=== PATIENT | male | born 1965 | race Caucasian/White ===

== ENCOUNTER 2017-12-10 23:45 | Observation (INO) | payer OTHER ==
[~2017-12-10] VITALS: Ht 154.9 cm; Wt 99.8 kg
[~2017-12-10 23:45] MED LIST: ALBU90I INH; BISA10S PR; BUME1 PO; CYCL10 PO; DIAZ5 PO; DOCU100 PO; ERYT250; HYDACE5; HYDACE5 PO; HYDR1TAB94 PO; IBUP400 PO; LEVO750 PO; LISI5 PO; LORA2 PO; NAPR220 PO; NAPR550 PO; OMEP20ER PO; OXYACE5T PO; PENVK500; PROM25 PO; RXCYCL10 PO; RXLORA1 PO; RXNAPNA550 PO; SULTRIDS PO
[2017-12-11 00:28] LABS: BASOPHILS ABSOLUTE AUTO 0.04 K/mm3 (0.00-0.23); BASOPHILS PERCENT AUTO 1 % (0-2); EOSINOPHILS ABSOLUTE AUTO 0.02 K/mm3 (0.00-0.68); EOSINOPHILS PERCENT AUTO 0 % (0-6); Hematocrit 45.8 % (37.0-53.0); Hemoglobin 15.8 g/dL (13.5-17.5); IMMATURE GRAN ABSOLUTE AUTO 0.03 K/mm3 (0.00-0.10); IMMATURE GRAN PERCENT AUTO 0 % (0-1); LYMPHOCYTES ABSOLUTE AUTO 1.08 K/mm3 (0.84-5.20); LYMPHOCYTES PERCENT AUTO 13 % (21-46); MONOCYTES ABSOLUTE AUTO 0.76 K/mm3 (0.16-1.47); MONOCYTES PERCENT AUTO 9 % (4-13); Mean Corpuscular HGB Conc 34.5 g/dL (31.5-36.5); Mean Corpuscular Volume 90 fL (80-100); Mean Platelet Volume 9.3 fL (9.1-12.4); NEUTROPHILS ABSOLUTE AUTO 6.73 K/mm3 (1.96-9.15); NEUTROPHILS PERCENT AUTO 78 % (41-73); Platelet Count 266 K/mm3 (150-400); RDW Coefficient Variation 13.4 % (11.7-14.2); RDW Standard Deviation 44.2 fL (35.1-46.3); White Blood Cell Count 8.66 K/mm3 (4.00-11.30)
[2017-12-11 00:51] LABS: Alanine Aminotransfer (ALT/SGP 74 U/L (12-78); Albumin, Blood 3.4 g/dL (3.4-5.0); Albumin/Globulin Ratio 0.8 (0.8-1.8); Alk Phos 92 U/L (50-136); Anion Gap 10 mmol/L (6-16); Aspartate Aminotrans (AST/SGOT 60 U/L (12-37); Bilirubin, Total 1.1 mg/dL (0.1-1.0); Blood Urea Nitrogen 14 mg/dL (8-24); Bun/Creatinine Ratio 15.6 (12.0-20.0); CO2, Blood 26 mmol/L (21-32); Calcium, Blood 8.2 mg/dL (8.5-10.1); Chloride, Blood 100 mmol/L (98-108); Ethanol (Alcohol), Blood, Med <3 mg/dL; Globulin, Blood 4.5 g/dL (2.2-4.0); Glomerular Filtration Rate >60 (60-); Glucose, Blood 95 mg/dL (70-99); Potassium, Blood 3.8 mmol/L (3.5-5.5); Sodium, Blood 136 mmol/L (136-145); Total Protein, Blood 7.9 g/dL (6.4-8.2)
[2017-12-11 05:01] LABS: BASOPHILS ABSOLUTE AUTO 0.03 K/mm3 (0.00-0.23); BASOPHILS PERCENT AUTO 0 % (0-2); EOSINOPHILS ABSOLUTE AUTO 0.04 K/mm3 (0.00-0.68); EOSINOPHILS PERCENT AUTO 1 % (0-6); Hematocrit 42.6 % (37.0-53.0); Hemoglobin 14.4 g/dL (13.5-17.5); IMMATURE GRAN ABSOLUTE AUTO 0.02 K/mm3 (0.00-0.10); IMMATURE GRAN PERCENT AUTO 0 % (0-1); LYMPHOCYTES ABSOLUTE AUTO 1.06 K/mm3 (0.84-5.20); LYMPHOCYTES PERCENT AUTO 15 % (21-46); MONOCYTES PERCENT AUTO 8 % (4-13); Mean Corpuscular HGB 30.8 pg (26.0-34.0); Mean Corpuscular HGB Conc 33.8 g/dL (31.5-36.5); Mean Corpuscular Volume 91 fL (80-100); Mean Platelet Volume 9.2 fL (9.1-12.4); NEUTROPHILS ABSOLUTE AUTO 5.38 K/mm3 (1.96-9.15); NEUTROPHILS PERCENT AUTO 75 % (41-73); Platelet Count 218 K/mm3 (150-400); RDW Coefficient Variation 13.5 % (11.7-14.2); RDW Standard Deviation 45.2 fL (35.1-46.3); Red Blood Cell Count 4.67 M/mm3 (4.30-5.90); White Blood Cell Count 7.13 K/mm3 (4.00-11.30)
[2017-12-11 05:38] LABS: Alanine Aminotransfer (ALT/SGP 62 U/L (12-78); Albumin/Globulin Ratio 0.7 (0.8-1.8); Alk Phos 80 U/L (50-136); Anion Gap 9 mmol/L (6-16); Aspartate Aminotrans (AST/SGOT 49 U/L (12-37); Bilirubin, Total 1.1 mg/dL (0.1-1.0); Blood Urea Nitrogen 13 mg/dL (8-24); Bun/Creatinine Ratio 14.6 (12.0-20.0); CHOL/HDL RATIO 2.1; CO2, Blood 26 mmol/L (21-32); Calcium, Blood 7.7 mg/dL (8.5-10.1); Chloride, Blood 102 mmol/L (98-108); Cholesterol 174 mg/dL (50-200); Creatinine, Blood 0.89 mg/dL (0.60-1.20); Globulin, Blood 4.1 g/dL (2.2-4.0); Glomerular Filtration Rate >60 (60-); Glucose, Blood 83 mg/dL (70-99); HDL Cholesterol 84 mg/dL (>39); LDL/HDL RATIO 0.7; Low Density Lipoprotein Chol 60 mg/dL (0-110); Potassium, Blood 3.5 mmol/L (3.5-5.5); Sodium, Blood 137 mmol/L (136-145); Total Protein, Blood 7.1 g/dL (6.4-8.2); Triglycerides 148 mg/dL (30-160); Very Low Density Lipoprot Chol 29 mg/dL (6-32)
== END 2017-12-12 15:09 | disposition home or self-care (01) ==
LOC: ER 23:45 → MEDS 23:46 → ER 12-11 01:45 → MEDS 12-11 01:45 → ENPENDDIS 12-12 08:16 → MEDS 12-12 15:09
PROVIDERS: Emergency Medicine; Internal Medicine
DX: K85.90 Acute pancreatitis without necrosis or infection, unspecified (principal); E86.0 Dehydration; Z98.890 Other specified postprocedural states
CPT/HCPCS: 36415; 76705; 80053; 80061; 83690; 85025; 96361; 96374; 96375; 99285; G0378; G0480; J1170; J1650; J2405; J7030

== ENCOUNTER → 2018-03-26 | Outpatient (CLI) | payer OTHER | LOC: LAB SHORT 16:40 → LAB 16:40 | DX: L08.9 Local infection of the skin and subcutaneous tissue, unspecified (principal) | CPT/HCPCS: 87070; 87077; 87147; 87186; 87205 ==

== ENCOUNTER 2018-10-22 12:17 | Emergency (ER) | payer BC ==
[~2018-10-22] VITALS: Ht 180.3 cm; Wt 99.8 kg
[2018-10-22 13:20] LABS: BASOPHILS ABSOLUTE AUTO 0.06 K/mm3 (0.00-0.23); BASOPHILS PERCENT AUTO 1 % (0-2); EOSINOPHILS PERCENT AUTO 0 % (0-6); Hematocrit 48.8 % (37.0-53.0); Hemoglobin 16.2 g/dL (13.5-17.5); IMMATURE GRAN ABSOLUTE AUTO 0.03 K/mm3 (0.00-0.10); IMMATURE GRAN PERCENT AUTO 0 % (0-1); LYMPHOCYTES PERCENT AUTO 8 % (21-46); MONOCYTES ABSOLUTE AUTO 0.49 K/mm3 (0.16-1.47); MONOCYTES PERCENT AUTO 6 % (4-13); Mean Corpuscular HGB 30.3 pg (26.0-34.0); Mean Corpuscular HGB Conc 33.2 g/dL (31.5-36.5); Mean Corpuscular Volume 91 fL (80-100); Mean Platelet Volume 9.8 fL (9.1-12.4); NEUTROPHILS ABSOLUTE AUTO 7.08 K/mm3 (1.96-9.15); NEUTROPHILS PERCENT AUTO 85 % (41-73); Platelet Count 242 K/mm3 (150-400); RDW Coefficient Variation 12.9 % (11.7-14.2); RDW Standard Deviation 43.5 fL (35.1-46.3); Red Blood Cell Count 5.34 M/mm3 (4.30-5.90); White Blood Cell Count 8.36 K/mm3 (4.00-11.30)
[2018-10-22 14:30] LABS: Alanine Aminotransfer (ALT/SGP 104 U/L (12-78); Albumin, Blood 3.6 g/dL (3.4-5.0); Albumin/Globulin Ratio 0.9 (0.8-1.8); Alk Phos 131 U/L (50-136); Anion Gap 13 mmol/L (6-16); Aspartate Aminotrans (AST/SGOT 168 U/L (12-37); Bilirubin, Total 2.3 mg/dL (0.1-1.0); Blood Urea Nitrogen 11 mg/dL (8-24); CO2, Blood 25 mmol/L (21-32); Calcium, Blood 8.6 mg/dL (8.5-10.1); Chloride, Blood 98 mmol/L (98-108); Globulin, Blood 4.2 g/dL (2.2-4.0); Glomerular Filtration Rate >60 (60-); Glucose, Blood 147 mg/dL (70-99); Potassium, Blood 4.1 mmol/L (3.5-5.5); Sodium, Blood 136 mmol/L (136-145); Total Protein, Blood 7.8 g/dL (6.4-8.2)
[2018-10-22 15:27] LABS: Source, Urine Clean Catch
[2018-10-22 15:30] LABS: Appearance, Urine Clear (Clear); Blood, Urine 1+ (Neg); Color, Urine Amber (P-Yellow); Glucose Qualitative, Urine Neg (Neg); Ketones, Urine 4+ (Neg); Leukocyte Esterase, Urine 1+ (Neg); Nitrite, Urine Pos (Neg); Protein, Urine 2+ (Neg); Specific Gravity, Urine 1.025 (1.003-1.022); Urobilinogen, Urine 2+ (Normal)
[2018-10-22 15:43] LABS: Bilirubin, Urine 1+ (Neg)
[2018-10-22 15:48] LABS: Mucus Mod (0-Heavy)
[2018-10-22 15:49] LABS: Bacteria Mod /hpf; Squamous Epithelial Cells Not Seen /hpf (Few)
[2018-10-22] MEDS ORDERED: ONDA4ODT MM (18:16)
[2018-10-22] MEDS ORDERED: CHLO25 PO (18:16)
== END 2018-10-22 18:27 | disposition home or self-care (01) ==
LOC: ER 12:17
PROVIDERS: Physician Assistant
DX: R10.13 Epigastric pain (principal); R10.11 Right upper quadrant pain; R11.2 Nausea with vomiting, unspecified
CPT/HCPCS: 36415; 74177; 80053; 81001; 83690; 84484; 85025; 87086; 96361; 96365; 96375; 96376; 99284-25; J1170; J2060; J2405; J3411; J7120; Q9967

== ENCOUNTER 2019-08-19 09:55 | Emergency (ER) | payer BC ==
[~2019-08-19] VITALS: Ht 180.3 cm; Wt 90.7 kg
[~2019-08-19 09:55] MED LIST changes: +CHLO25 PO; +ONDA4ODT MM
[2019-08-19 11:21] LABS: BASOPHILS ABSOLUTE AUTO 0.04 K/mm3 (0.00-0.23); BASOPHILS PERCENT AUTO 1 % (0-2); EOSINOPHILS ABSOLUTE AUTO 0.01 K/mm3 (0.00-0.68); EOSINOPHILS PERCENT AUTO 0 % (0-6); Hematocrit 43.4 % (37.0-53.0); Hemoglobin 14.6 g/dL (13.5-17.5); IMMATURE GRAN ABSOLUTE AUTO 0.01 K/mm3 (0.00-0.10); IMMATURE GRAN PERCENT AUTO 0 % (0-1); LYMPHOCYTES ABSOLUTE AUTO 0.62 K/mm3 (0.84-5.20); LYMPHOCYTES PERCENT AUTO 16 % (21-46); MONOCYTES ABSOLUTE AUTO 0.35 K/mm3 (0.16-1.47); MONOCYTES PERCENT AUTO 9 % (4-13); Mean Corpuscular HGB Conc 33.6 g/dL (31.5-36.5); Mean Corpuscular Volume 92 fL (80-100); Mean Platelet Volume 9.8 fL (9.1-12.4); NEUTROPHILS PERCENT AUTO 74 % (41-73); Platelet Count 167 K/mm3 (150-400); RDW Coefficient Variation 13.6 % (11.7-14.2); RDW Standard Deviation 46.3 fL (35.1-46.3); Red Blood Cell Count 4.71 M/mm3 (4.30-5.90); White Blood Cell Count 3.93 K/mm3 (4.00-11.30)
[2019-08-19 11:36] LABS: Source, Urine Clean Catch
[2019-08-19 11:37] LABS: International Normalized Ratio 1.08; Prothrombin Time Results 11.4 Sec (9.7-11.5)
[2019-08-19 11:40] LABS: Alanine Aminotransfer (ALT/SGP 53 U/L (12-78); Albumin, Blood 3.7 g/dL (3.4-5.0); Albumin/Globulin Ratio 0.8 (0.8-1.8); Alk Phos 150 U/L (50-136); Anion Gap 12 mmol/L (6-16); Aspartate Aminotrans (AST/SGOT 75 U/L (12-37); Bilirubin, Total 0.8 mg/dL (0.1-1.0); Blood Urea Nitrogen 13 mg/dL (8-24); Bun/Creatinine Ratio 12.7 (12.0-20.0); CO2, Blood 23 mmol/L (21-32); Chloride, Blood 104 mmol/L (98-108); Creatinine, Blood 1.02 mg/dL (0.60-1.20); Globulin, Blood 4.7 g/dL (2.2-4.0); Glomerular Filtration Rate >60 (60-); Glucose, Blood 86 mg/dL (70-99); Potassium, Blood 3.8 mmol/L (3.5-5.5); Sodium, Blood 139 mmol/L (136-145); Total Protein, Blood 8.4 g/dL (6.4-8.2)
[2019-08-19 11:49] LABS: Appearance, Urine Clear (Clear); Bilirubin, Urine Neg (Neg); Blood, Urine Neg (Neg); Color, Urine Yellow (P-Yellow); Glucose Qualitative, Urine Neg (Neg); Ketones, Urine Neg (Neg); Leukocyte Esterase, Urine Neg (Neg); Nitrite, Urine Neg (Neg); Protein, Urine 1+ (Neg); Urobilinogen, Urine NORM (Normal); pH, Urine 6.5 (5.0-8.0)
[2019-08-19] MEDS ORDERED: Zofran8 MG PO (12:23)
[2019-08-19] MEDS ORDERED: Pepcid20 MG PO (12:23)
[2019-08-19] MEDS ORDERED: HYDACE25S PR (12:36)
== END 2019-08-19 12:44 | disposition home or self-care (01) ==
LOC: ER 09:55
PROVIDERS: Emergency Medicine
DX: K62.5 Hemorrhage of anus and rectum (principal); R11.0 Nausea
CPT/HCPCS: 36415; 80053; 85025; 85610; 85730; 86850; 86900; 86901; 93005; 93010; 96374; 96375; 99283-25; J2405

== ENCOUNTER 2019-11-05 08:25 | Day surgery (SDC) | payer BC, OTHER ==
[~2019-11-05] VITALS: Ht 180.3 cm; Wt 94.8 kg
[~2019-11-05 08:25] MED LIST changes: +CHLO5; +HYDACE25S PR; +Pepcid20 MG PO; +Zofran8 MG PO
== END 2019-11-05 12:07 | disposition home or self-care (01) ==
LOC: ORSCSDS 08:25
DX: K92.1 Melena (principal); D12.0 Benign neoplasm of cecum; D12.2 Benign neoplasm of ascending colon; K64.8 Other hemorrhoids; R19.4 Change in bowel habit; K76.0 Fatty (change of) liver, not elsewhere classified; I10 Essential (primary) hypertension; Z79.899 Other long term (current) drug therapy
CPT/HCPCS: 88305; J2704; J7040; J7120

== ENCOUNTER 2019-12-28 10:23 | Day surgery (SDC) | payer BC ==
[~2019-12-28] VITALS: Ht 180.3 cm; Wt 98.8 kg
--- NOTE | 2019-12-28 11:54 | NUR ---
12/28/19 Karla4 Sanjuana Manjarrez SIMETHICONE USED DURING PROCEDURE.
== END 2019-12-28 13:16 | disposition home or self-care (01) ==
LOC: ORSCSDS 10:23
PROVIDERS: Student in an Organized Health Care Education/Training Program
PROC: 0DBH8ZX Excision of Cecum, Via Natural or Artificial Opening Endoscopic, Diagnostic (ICD-10-PCS; principal; 2019-12-28 12:00)
PROC: 0DBK8ZX Excision of Ascending Colon, Via Natural or Artificial Opening Endoscopic, Diagnostic (ICD-10-PCS; principal; 2019-12-28 12:00)
PROC: 0DBN8ZX Excision of Sigmoid Colon, Via Natural or Artificial Opening Endoscopic, Diagnostic (ICD-10-PCS; principal; 2019-12-28 12:00)
PROC: 0DBP8ZX Excision of Rectum, Via Natural or Artificial Opening Endoscopic, Diagnostic (ICD-10-PCS; principal; 2019-12-28 12:00)
DX: Z12.11 Encounter for screening for malignant neoplasm of colon (principal); Z86.010 Personal history of colon polyps; D12.0 Benign neoplasm of cecum; D12.5 Benign neoplasm of sigmoid colon; D12.2 Benign neoplasm of ascending colon; D12.8 Benign neoplasm of rectum; K57.30 Diverticulosis of large intestine without perforation or abscess without bleeding; K64.8 Other hemorrhoids
CPT/HCPCS: 88305; J2250; J2704; J7120

== ENCOUNTER → 2020-11-01 | Outpatient (CLI) | payer OTHER ==
[~2020-11-01] MED LIST changes: +AMOX500 PO
[2020-11-11 07:10] LABS: COTININE <10.0 ng/mL (.); NICOTINE <10.0 ng/mL (.)
== END | disposition home or self-care (01) ==
LOC: LAB SHORT 10:03 → OLS 10:03 → EDSTATUS 10-31 14:55 → LAB FUT 10-31 14:55
PROVIDERS: Ophthalmology
DX: F17.211 Nicotine dependence, cigarettes, in remission (principal)
CPT/HCPCS: G0480

== ENCOUNTER 2021-01-03 06:11 | Day surgery (SDC) | payer OTHER ==
[~2021-01-03] VITALS: Ht 180.3 cm; Wt 101.1 kg
[~2021-01-03 06:11] MED LIST changes: -AMOX500 PO
--- NOTE | 2021-01-03 06:44 | NUR ---
01/03/21 0644 Edwige Reyes V 1 DROP TETRACAINE APPLIED AT 0640 AND 1 PLEDGET PLACED AT 0642 IN L EYE PER ORDERS.
[2021-02-13] MEDS ORDERED: AMOX500 PO
== END 2021-01-03 08:10 | disposition home or self-care (01) ==
LOC: ORSCSDS 06:11
PROVIDERS: Ophthalmology
PROC: 08RK3JZ Replacement of Left Lens with Synthetic Substitute, Percutaneous Approach (ICD-10-PCS; principal; 2021-01-03 07:30)
DX: H25.12 Age-related nuclear cataract, left eye (principal)
CPT/HCPCS: A9270; J2001; J2250; J3010; J3301; J7040; V2632

== ENCOUNTER 2022-08-08 11:31 | Emergency (ER) | payer OTHER ==
[~2022-08-08] VITALS: Ht 180.3 cm; Wt 99.8 kg
[~2022-08-08 11:31] MED LIST changes: +AMOX500 PO
== END 2022-08-08 15:00 | disposition home or self-care (01) ==
LOC: ER 11:31
DX: S63.104A Unspecified dislocation of right thumb, initial encounter (principal); X58.XXXA Exposure to other specified factors, initial encounter
CPT/HCPCS: 73140

== ENCOUNTER → 2024-05-28 | Outpatient (CLI) | payer OTHER | LOC: LAB 07:41 → LAB SHORT 07:41 | DX: R22.41 Localized swelling, mass and lump, right lower limb (principal) | CPT/HCPCS: 88305 ==

== ENCOUNTER 2024-07-07 15:31 | Inpatient (IN) | payer OTHER ==
[~2024-07-07] VITALS: Ht 180.3 cm; Wt 97.4 kg
[2024-07-07 16:11] LABS: Source, Urine Clean Catch
[2024-07-07 16:14] LABS: BASOPHILS ABSOLUTE AUTO 0.09 K/mm3 (0.00-0.23); BASOPHILS PERCENT AUTO 1 % (0-2); EOSINOPHILS ABSOLUTE AUTO 0.17 K/mm3 (0.00-0.68); EOSINOPHILS PERCENT AUTO 2 % (0-6); Hematocrit 39.9 % (37.0-53.0); Hemoglobin 14.1 g/dL (13.5-17.5); IMMATURE GRAN ABSOLUTE AUTO 0.04 K/mm3 (0.00-0.10); IMMATURE GRAN PERCENT AUTO 1 % (0-1); LYMPHOCYTES ABSOLUTE AUTO 1.48 K/mm3 (0.84-5.20); LYMPHOCYTES PERCENT AUTO 20 % (21-46); MONOCYTES ABSOLUTE AUTO 0.72 K/mm3 (0.16-1.47); MONOCYTES PERCENT AUTO 10 % (4-13); Mean Corpuscular HGB 31.1 pg (26.0-34.0); Mean Corpuscular HGB Conc 35.3 g/dL (31.5-36.5); Mean Corpuscular Volume 88 fL (80-100); Mean Platelet Volume 10.6 fL (9.1-12.4); NEUTROPHILS ABSOLUTE AUTO 4.94 K/mm3 (1.96-9.15); NEUTROPHILS PERCENT AUTO 66 % (41-73); Platelet Count 249 K/mm3 (150-400); RDW Coefficient Variation 17.2 % (11.7-14.2); RDW Standard Deviation 55.4 fL (35.1-46.3); Red Blood Cell Count 4.53 M/mm3 (4.30-5.90); White Blood Cell Count 7.44 K/mm3 (4.00-11.30)
[2024-07-07 16:16] LABS: Appearance, Urine Clear (Clear); Blood, Urine Neg (Neg); Color, Urine Amber (P-Yellow); Glucose Qualitative, Urine Neg (Neg); Ketones, Urine Neg (Neg); Leukocyte Esterase, Urine Neg (Neg); Nitrite, Urine Neg (Neg); Protein, Urine Neg (Neg); Specific Gravity, Urine 1.005 (1.003-1.022); Urobilinogen, Urine 1+ (Normal)
[2024-07-07 16:23] LABS: Bilirubin, Urine 2+ (Neg)
[2024-07-07 16:40] LABS: Albumin, Blood 2.9 g/dL (3.4-5.0); Albumin/Globulin Ratio 0.7 (0.8-1.8); Bilirubin, Direct 12.1 mg/dL (0.0-0.3); Bilirubin, Indirect 1.9 mg/dL (0.1-0.7); Bun/Creatinine Ratio 9.3 (12.0-20.0); Calcium, Blood 8.9 mg/dL (8.5-10.1); Creatinine, Blood 0.75 mg/dL (0.60-1.20); Globulin, Blood 4.2 g/dL (2.2-4.0); Potassium, Blood 3.7 mmol/L (3.5-5.5); Total Protein, Blood 7.1 g/dL (6.4-8.2)
[2024-07-07] MEDS ORDERED: NS 1,000 ML IV SCH ×2 (17:40→21:00)
[2024-07-07 17:56] LABS: International Normalized Ratio 1.01; Prothrombin Time Results 10.8 Sec (9.7-11.5)
[2024-07-07] MEDS ORDERED: Ondansetron HCl 2 MG / ML 2ML Vial IV PRN (20:20)
[2024-07-07] MEDS ORDERED: DONEPEZIL HCL10 M1 PO (21:43)
[2024-07-07 21:51] VITALS: BP 151/95
[2024-07-07] MEDS ORDERED: METOPROLOL SUCC25 MG PO (21:55)
[2024-07-07] MEDS ORDERED: ONE DAILY ESS400 MCG PO (21:56)
[2024-07-07] MEDS ORDERED: ZOLP5 PO (21:57)
--- NOTE | 2024-07-07 21:57 | NUR ---
ADMIT NOTE PT ARRIVED TO FLOOR VIA MAGALY. PT ORIENTED TO UNIT. HANDOFF RECEIVED FROM FANCY WIRE DRAWER ERIBERTO. 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 WE HAVE PROTECTED HIS IV AND HE IS SHOWERING AT THIS TIME. I WILL COMPLETE THE ADMIT AND BEGIN HIS IV FLUIDS WHEN HE IS DONE.
[2024-07-07] MEDS ORDERED: Meclizine HCl 25 MG Tab PO PRN (22:55)
[2024-07-08 03:13] VITALS: BP 104/70
--- NOTE | 2024-07-08 04:24 | NUR ---
SHIFT SUMMARY ADMITTED FOR JAUNDICE. FULL CODE. NS INFUSING ORDERED. MONITORING LABS. ON RA, REGULAR DIET, INDEPENDENT IN ROOM. HE IS A&O X4. HX OF ETOH, HE REPORTS HE HAS CUT WAY DOWN ON HIS CONSUMPTION. HX: OF TBI, PANCREATITIS
[2024-07-08 06:03] LABS: BASOPHILS ABSOLUTE AUTO 0.08 K/mm3 (0.00-0.23); BASOPHILS PERCENT AUTO 1 % (0-2); EOSINOPHILS ABSOLUTE AUTO 0.21 K/mm3 (0.00-0.68); EOSINOPHILS PERCENT AUTO 3 % (0-6); Hematocrit 35.1 % (37.0-53.0); Hemoglobin 12.6 g/dL (13.5-17.5); IMMATURE GRAN ABSOLUTE AUTO 0.03 K/mm3 (0.00-0.10); IMMATURE GRAN PERCENT AUTO 0 % (0-1); LYMPHOCYTES ABSOLUTE AUTO 1.46 K/mm3 (0.84-5.20); LYMPHOCYTES PERCENT AUTO 20 % (21-46); MONOCYTES ABSOLUTE AUTO 0.78 K/mm3 (0.16-1.47); MONOCYTES PERCENT AUTO 11 % (4-13); Mean Corpuscular HGB 31.2 pg (26.0-34.0); Mean Corpuscular HGB Conc 35.9 g/dL (31.5-36.5); Mean Corpuscular Volume 87 fL (80-100); Mean Platelet Volume 11.1 fL (9.1-12.4); NEUTROPHILS ABSOLUTE AUTO 4.78 K/mm3 (1.96-9.15); NEUTROPHILS PERCENT AUTO 65 % (41-73); Platelet Count 237 K/mm3 (150-400); RDW Coefficient Variation 17.2 % (11.7-14.2); RDW Standard Deviation 54.1 fL (35.1-46.3); Red Blood Cell Count 4.04 M/mm3 (4.30-5.90); White Blood Cell Count 7.34 K/mm3 (4.00-11.30)
[2024-07-08 06:36] LABS: Albumin, Blood 2.5 g/dL (3.4-5.0); Albumin/Globulin Ratio 0.8 (0.8-1.8); Bilirubin, Total 13.1 mg/dL (0.1-1.0); Bun/Creatinine Ratio 8.3 (12.0-20.0); Calcium, Blood 7.9 mg/dL (8.5-10.1); Creatinine, Blood 0.72 mg/dL (0.60-1.20); Globulin, Blood 3.3 g/dL (2.2-4.0); Total Protein, Blood 5.8 g/dL (6.4-8.2)
[2024-07-08 07:18] VITALS: BP 139/91
[2024-07-08] MEDS ORDERED: Enoxaparin 40 MG/0.4 ML SYR SC SCH (09:00)
[2024-07-08] MEDS ORDERED: Donepezil HCl 5 MG Tab PO SCH ×2 (09:00→21:00)
[2024-07-08] MEDS ORDERED: Multivitamins/Minerals TAB PO SCH (09:00)
[2024-07-08] MEDS ORDERED: Metoprolol Succinate 25 MG TABCR PO SCH (09:00)
[2024-07-08] MEDS ORDERED: TraMADol HCl 50 MG Tab PO PRN (11:20)
[2024-07-08 16:00] VITALS: BP 147/95
--- NOTE | 2024-07-08 17:06 | NUR ---
NO ACUTE CHANGES THIS SHIFT, PT REPORTED PAIN IN RUQ ABD, TREATED PER EMAR. ALERT AND ORIENTED X4, ABLE TO EXPRESS NEEDS, INDEPENDENT IN THE ROOM, IV FLUIDS COMPLETE. SKIN JAUNDICE
[2024-07-08 19:12] VITALS: BP 140/88
[2024-07-08] MEDS ORDERED: Thiamine HCl 100 MG Tab PO SCH (20:00)
[2024-07-08] MEDS ORDERED: Folic Acid 1 MG TAB PO SCH (20:00)
[2024-07-08] MEDS ORDERED: Pantoprazole Sodium 40 MG Tab PO SCH (20:00)
[2024-07-09 04:06] VITALS: BP 122/82
--- NOTE | 2024-07-09 04:12 | NUR ---
SHIFT SUMMARY ADMITTED FOR JAUNDICE. FULL CODE. WE ARE MONITORING LABS. PAIN RX GIVEN THIS SHIFT FOR RUQ PAIN. INDEPENDENT IN ROOM, A&O X4. REGULAR DIET. BM ON PREVIOUS SHIFT. ON RA. HX OF ETOH, PANCREATITIS, TBI, DEMENTIA.
[2024-07-09 06:00] LABS: Albumin, Blood 2.6 g/dL (3.4-5.0); Albumin/Globulin Ratio 0.7 (0.8-1.8); Bilirubin, Total 14.3 mg/dL (0.1-1.0); Calcium, Blood 8.5 mg/dL (8.5-10.1); Creatinine, Blood 0.66 mg/dL (0.60-1.20); Globulin, Blood 3.8 g/dL (2.2-4.0); Potassium, Blood 3.9 mmol/L (3.5-5.5); Total Protein, Blood 6.4 g/dL (6.4-8.2)
[2024-07-09 07:06] VITALS: BP 135/94
--- NOTE | 2024-07-09 08:43 | NUR ---
PT LAYING IN BED, COMPLAINS OF RUQ PAIN WORSEN AFTER EATING. TREATED PER EMAR. PT REPORTS 1 EPISODE OF NAUSEA WITH NO EMESIS OVERNIGHT. PT REPORTS UNQUENTABLE THIRST DESPITE DRINKING WATER, REPORTS DARK URINE, ONE BOWEL MOVEMENT THAT WAS GREEN AND WHITE IN COLOR. BED IS IN THE LOWEST POSITION WITH CALL LIGHT IN REACH. INDEPENDENT IN THE ROOM.
[2024-07-09] MEDS ORDERED: Sodium Chloride 1 GM TAB PO SCH (09:05)
--- NOTE | 2024-07-09 09:51 | NUR ---
LATE ENTRY 0900 DR. RIVERA NOTIFIED OF SODIUM CLORIDE LEVELS, PER MD ORDER SODIUM CLORIDE 1 GRAM TAB PO BID, AND PLACE PT ON FREE WATER RESTRICTION 500 ML. PT EDUCATED FLUID RESTRICTION. PT VERBALIZED UNDERSTANDING
[2024-07-09 15:37] VITALS: BP 136/97
--- NOTE | 2024-07-09 16:06 | NUR ---
NO ACUTE CHANGES THIS SHIFT. PT IS ABLE TO MAKE NEEDS KNOWN. DR. RIVERA WANTS PT TO HAVE 2 BOWEL MOVEMENTS PER DAY. LACTULOSE ORDERED. 500 ML FREE WATER RESTRICTION. INDEPENDENT IN THE ROOM, MONITORING LABS
[2024-07-09 19:25] VITALS: BP 129/94
[2024-07-09] MEDS ORDERED: Lactulose 20 GM/30 ML UDC PO SCH (21:00)
--- NOTE | 2024-07-10 03:57 | NUR ---
SHIFT SUMMARY ADMITTED FOR RUQ ABDOMINAL PAIN/JAUNDICE. FULL CODE. FREE WATER RESTRICTION IN PLACE FOR HYPONATREMIA. LACTULOSE GIVEN. MONITORING LABS, AWAITING HEPATITIS LABS. PAIN RX GIVEN THIS SHIFT. A&O X4. ON RA. INDEPENDENT IN ROOM. HX OF ETOH, PANCREATITIS, CIRRHOSIS, TBI.
[2024-07-10 03:58] VITALS: BP 125/80
[2024-07-10 05:41] LABS: BASOPHILS ABSOLUTE AUTO 0.13 K/mm3 (0.00-0.23); BASOPHILS PERCENT AUTO 1 % (0-2); EOSINOPHILS ABSOLUTE AUTO 0.29 K/mm3 (0.00-0.68); EOSINOPHILS PERCENT AUTO 3 % (0-6); Hemoglobin 13.4 g/dL (13.5-17.5); IMMATURE GRAN ABSOLUTE AUTO 0.05 K/mm3 (0.00-0.10); IMMATURE GRAN PERCENT AUTO 1 % (0-1); LYMPHOCYTES ABSOLUTE AUTO 1.54 K/mm3 (0.84-5.20); LYMPHOCYTES PERCENT AUTO 16 % (21-46); MONOCYTES ABSOLUTE AUTO 0.92 K/mm3 (0.16-1.47); MONOCYTES PERCENT AUTO 9 % (4-13); Mean Corpuscular HGB 31.1 pg (26.0-34.0); Mean Corpuscular HGB Conc 36.2 g/dL (31.5-36.5); Mean Corpuscular Volume 86 fL (80-100); Mean Platelet Volume 10.6 fL (9.1-12.4); NEUTROPHILS ABSOLUTE AUTO 6.93 K/mm3 (1.96-9.15); NEUTROPHILS PERCENT AUTO 70 % (41-73); Platelet Count 335 K/mm3 (150-400); RDW Coefficient Variation 17.6 % (11.7-14.2); Red Blood Cell Count 4.31 M/mm3 (4.30-5.90); White Blood Cell Count 9.86 K/mm3 (4.00-11.30)
[2024-07-10 05:52] LABS: International Normalized Ratio 1.02; Prothrombin Time Results 10.9 Sec (9.7-11.5)
[2024-07-10 06:04] LABS: MITOCHONDRIAL (M2) AB,IGG 84.4 Units (0.0-24.9)
[2024-07-10 06:12] LABS: Albumin, Blood 2.6 g/dL (3.4-5.0); Albumin/Globulin Ratio 0.6 (0.8-1.8); Bilirubin, Total 15.2 mg/dL (0.1-1.0); Bun/Creatinine Ratio 11.6 (12.0-20.0); Calcium, Blood 8.8 mg/dL (8.5-10.1); Creatinine, Blood 0.69 mg/dL (0.60-1.20); Total Protein, Blood 6.6 g/dL (6.4-8.2)
[2024-07-10 07:27] VITALS: BP 113/89
--- NOTE | 2024-07-10 09:51 | NUR ---
Pt. is awake in bed when he welcomes my visit. Pt. is pleasant. Facilitate a life review and listen with interest and empathy. Pt. verbalizes that larry is not part of his current practice, but also verbalized gratitude for the spiritual care visit.
[2024-07-10 12:24] LABS: HEPATITIS A ANTIBODY, IGM Negative (Negative); HEPATITIS B CORE ANTIBODY, IGM Negative (Negative); HEPATITIS B SURFACE ANTIGEN Negative (Negative); HEPATITIS C AB CIA INTERP Negative (Negative); HEPATITIS C ANTIBODY CIA INDEX 0.17 IV
[2024-07-10 16:43] VITALS: BP 118/83
[2024-07-10 19:18] VITALS: BP 129/80
[2024-07-11 05:08] VITALS: BP 108/59
[2024-07-11 06:11] LABS: Albumin, Blood 2.6 g/dL (3.4-5.0); Albumin/Globulin Ratio 0.6 (0.8-1.8); Bilirubin, Total 15.4 mg/dL (0.1-1.0); Bun/Creatinine Ratio 10.6 (12.0-20.0); Calcium, Blood 9.1 mg/dL (8.5-10.1); Creatinine, Blood 0.75 mg/dL (0.60-1.20); Globulin, Blood 4.1 g/dL (2.2-4.0); Potassium, Blood 4.2 mmol/L (3.5-5.5); Total Protein, Blood 6.7 g/dL (6.4-8.2)
--- NOTE | 2024-07-11 06:11 | NUR ---
Patient alert and oriented x4, VSS, resting comfortably in bed on room air overnight. Patient ambulating to restroom independently. Pt. continues to be jaundiced.
[2024-07-11 07:38] VITALS: BP 108/63
[2024-07-11 15:13] VITALS: BP 129/83
--- NOTE | 2024-07-11 18:19 | NUR ---
SHIFT SUMMARY PATIENT AMBULATING INDEPENDENTLY IN ROOM THIS SHIFT. JAUNDICE SKIN AND SCLERA PERSISTS. A/O X4. LARGE JAIN COLOR BOWEL MOVEMENTS THIS SHIFT, ORANGE COLORED URINE. C/O EPIGASTRIC PAIN AFTER EATING, GIVEN TRAMADOL WITH MODERATE RELIEF. C/O ITCHING SKIN, DECLINED SHOWER AND LOTION. ABLE TO MAKE NEEDS KNOWN. CALL LIGHT IN REACH, CARES ONGOING.
[2024-07-11 19:35] VITALS: BP 114/78
[2024-07-12 02:56] VITALS: BP 101/62
--- NOTE | 2024-07-12 05:06 | NUR ---
SHIFT SUMMARY 58 YEAR OLD MALE JAUNDICE HISTORY OF CHRONIC ALCOHOLISM, TRAUMATIC BRAIN INJURY. WITH EARLY STAGE DEMENTIA, RECURRENT PANCREATITIS, AND HYPERTENSION. PATIENT IS INDEPENDENT ON ROOM AIR MEDS WHOLE WITH WATER. HAS 500ML/DAY WATER INTAKE. BED AT LOW POSITION, RAILS TIMES 2, CALL LIGHT WITHIN REACH.
[2024-07-12 05:33] LABS: Albumin, Blood 2.4 g/dL (3.4-5.0); Albumin/Globulin Ratio 0.6 (0.8-1.8); Bilirubin, Total 16.7 mg/dL (0.1-1.0); Bun/Creatinine Ratio 10.9 (12.0-20.0); Calcium, Blood 8.9 mg/dL (8.5-10.1); Creatinine, Blood 0.64 mg/dL (0.60-1.20); Globulin, Blood 4.1 g/dL (2.2-4.0); Potassium, Blood 4.3 mmol/L (3.5-5.5); Total Protein, Blood 6.5 g/dL (6.4-8.2)
[2024-07-12 08:06] VITALS: BP 99/64
[2024-07-12 09:14] VITALS: BP 136/84
[2024-07-12] MEDS ORDERED: Docusate Sodium/Senna 1 Tab PO SCH (11:00)
[2024-07-12] MEDS ORDERED: Polyethylene Glycol 3350 17 gm PO SCH (11:00)
[2024-07-12] MEDS ORDERED: DOCUZEN 8.6-501 EACH PO (11:20)
[2024-07-12] MEDS ORDERED: LACT10SY PO (11:21)
[2024-07-12] MEDS ORDERED: MIRALAX17 GM PO (11:21)
[2024-07-12] MEDS ORDERED: FOLI1 PO (11:21)
[2024-07-12] MEDS ORDERED: B-1100 M1 PO (11:22)
[2024-07-12] MEDS ORDERED: TRAM50 PO (11:22)
--- NOTE | 2024-07-12 14:45 | NUR ---
DISCHARGE SUMMARY PATIENT DISCHARGED THIS SHIFT WITH TO DRIVE, DISCHARGE PACKET GIVEN AND REVIEWED, VERBALIZED UNDERSTANDING. IV REMOVED PRIOR, WITHOUT COMPLICATION. JAUNDICE PERSISTS. HARD SCRIPT GIVEN FOR TRAMADOL, OTHER MEDS FAXED TO [facility]. EDUCATION PROVIDED REGARDING ABSTAINING FROM ETOH, VERBALIZED UNDERSTANDING.
== END 2024-07-12 13:28 | disposition home or self-care (01) | DRG 433 ==
LOC: ER 15:31 → MEDS 15:32 → ENPENDDIS 07-12 11:20 → MEDS 07-12 13:28
PROVIDERS: Family Medicine; Internal Medicine; Physician Assistant; Student in an Organized Health Care Education/Training Program; ADMIT Student in an Organized Health Care Education/Training Program
DX: K70.10 Alcoholic hepatitis without ascites (principal); E87.1 Hypo-osmolality and hyponatremia; K86.1 Other chronic pancreatitis; K70.30 Alcoholic cirrhosis of liver without ascites; E80.6 Other disorders of bilirubin metabolism; F10.20 Alcohol dependence, uncomplicated; F03.90 Unspecified dementia, unspecified severity, without behavioral disturbance, psychotic disturbance, mood disturbance, and anxiety; K76.0 Fatty (change of) liver, not elsewhere classified; I10 Essential (primary) hypertension; Z98.890 Other specified postprocedural states; Z87.820 Personal history of traumatic brain injury; Z90.89 Acquired absence of other organs; Z86.010 Personal history of colon polyps
CPT/HCPCS: 36415; 74177; 76705; 80048; 80053; 80074; 80076; 81003; 82140; 82977; 83690; 83930; 83935; 85025; 85610; 85730; 86381; 96360-59; 96372; 99285-25; A9270; G0378; G0480; J1650; J7030; Q9967

== ENCOUNTER 2024-07-27 09:39 | Emergency (ER) | payer OTHER ==
[~2024-07-27] VITALS: Ht 180.3 cm; Wt 97.1 kg
[~2024-07-27 09:39] MED LIST changes: +B-1100 M1 PO; +DOCUZEN 8.6-501 EACH PO; +DONEPEZIL HCL10 M1 PO; +FOLI1 PO; +LACT10SY PO; +METOPROLOL SUCC25 MG PO; +MIRALAX17 GM PO; +ONE DAILY ESS400 MCG PO; +TRAM50 PO; +ZOLP5 PO
[2024-07-27 11:22] LABS: BASOPHILS PERCENT AUTO 1 % (0-2); EOSINOPHILS ABSOLUTE AUTO 0.12 K/mm3 (0.00-0.68); EOSINOPHILS PERCENT AUTO 1 % (0-6); Hematocrit 34.1 % (37.0-53.0); Hemoglobin 12.2 g/dL (13.5-17.5); IMMATURE GRAN ABSOLUTE AUTO 0.45 K/mm3 (0.00-0.10); IMMATURE GRAN PERCENT AUTO 4 % (0-1); LYMPHOCYTES ABSOLUTE AUTO 1.46 K/mm3 (0.84-5.20); LYMPHOCYTES PERCENT AUTO 12 % (21-46); MONOCYTES ABSOLUTE AUTO 1.05 K/mm3 (0.16-1.47); MONOCYTES PERCENT AUTO 9 % (4-13); Mean Corpuscular HGB 31.9 pg (26.0-34.0); Mean Corpuscular HGB Conc 35.8 g/dL (31.5-36.5); Mean Corpuscular Volume 89 fL (80-100); Mean Platelet Volume 10.9 fL (9.1-12.4); NEUTROPHILS ABSOLUTE AUTO 9.17 K/mm3 (1.96-9.15); NEUTROPHILS PERCENT AUTO 74 % (41-73); Platelet Count 303 K/mm3 (150-400); RDW Coefficient Variation 19.7 % (11.7-14.2); RDW Standard Deviation 64.2 fL (35.1-46.3); Red Blood Cell Count 3.82 M/mm3 (4.30-5.90); White Blood Cell Count 12.35 K/mm3 (4.00-11.30)
[2024-07-27 12:12] LABS: Albumin, Blood 1.8 g/dL (3.4-5.0); Albumin/Globulin Ratio 0.4 (0.8-1.8); Bilirubin, Total 22.4 mg/dL (0.1-1.0); Bun/Creatinine Ratio 10.1 (12.0-20.0); Calcium, Blood 8.6 mg/dL (8.5-10.1); Creatinine, Blood 0.79 mg/dL (0.60-1.20); Globulin, Blood 4.7 g/dL (2.2-4.0); Potassium, Blood 3.6 mmol/L (3.5-5.5); Total Protein, Blood 6.5 g/dL (6.4-8.2)
[2024-07-27 14:45] VITALS: BP 116/76
[2024-07-27] MEDS ORDERED: ONDA4ODT MM (15:18)
== END 2024-07-27 15:29 | disposition home or self-care (01) ==
LOC: ER 09:39
PROVIDERS: Physician Assistant
DX: K70.30 Alcoholic cirrhosis of liver without ascites (principal); R74.8 Abnormal levels of other serum enzymes; R17 Unspecified jaundice; I10 Essential (primary) hypertension; F03.90 Unspecified dementia, unspecified severity, without behavioral disturbance, psychotic disturbance, mood disturbance, and anxiety; Z79.899 Other long term (current) drug therapy
CPT/HCPCS: 76705; 80053; 83690; 85025; 99284-25